=== PATIENT | male | born 1960 | race Asian ===

== ENCOUNTER 2021-06-07 08:14 | Inpatient (IN) | payer MEDICAID ==
[~2021-06-07] VITALS: Ht 167.6 cm; Wt 66.2 kg
[2021-06-07 09:16] LABS: BASOPHILS % (AUTO) 0.8 % (0.0-2.0); HEMOGLOBIN 12.7 g/dL (13.5-17.5); LYMPHOCYTES # (AUTO) 1.2 K/uL (1.0-4.8); LYMPHOCYTES % (AUTO) 14.5 % (22.0-44.0); MEAN CORPUSCULAR HGB CONC 33.4 G/dL (31.0-37.0); MEAN CORPUSCULAR VOLUME 90 fL (80-100); MONOCYTES # (AUTO) 0.5 K/uL (0.1-1.0); MONOCYTES % (AUTO) 6.6 % (2.0-9.0); NEUTROPHILS # (AUTO) 6.1 K/uL (1.8-7.7); NEUTROPHILS % (AUTO) 74.1 % (40.0-70.0); PLATELET COUNT (AUTO) 450 K/uL (150-450); RED BLOOD CELL COUNT(AUTO) 4.23 MIL/uL (4.50-5.90); RED CELL DISTRIBUTION WIDTH 13.2 % (11.5-14.5)
[2021-06-07 09:26] LABS: ANION GAP 14 mmol/L (8-16); CALCIUM, TOTAL 8.4 mg/dL (8.8-10.5); CARBON DIOXIDE 22 mmol/L (22-29); CHLORIDE 98 mmol/L (98-107); CREATININE 1.21 mg/dL (0.60-1.30); GLOMERULAR FILTR. RATE CALC > 60 mL/min (>60); GLUCOSE,RANDOM 332 mg/dL (70-110); POTASSIUM 3.8 mmol/L (3.5-5.1); SODIUM SERUM 134 mmol/L (136-145); UREA NITROGEN, BLOOD 7 mg/dL (7-18)
[2021-06-07 09:31] LABS: ALANINE AMINOTRANSFERASE 33 U/L (12-78); ALBUMIN 3.5 g/dL (3.4-5.0); ALKALINE PHOSPHATASE 163 U/L (46-116); ASPARTATE AMINOTRANSFERASE 26 U/L (15-37); BILIRUBIN,TOTAL 0.3 mg/dL (0.1-1.0); TOTAL PROTEIN, SERUM 7.2 g/dL (6.4-8.2)
[2021-06-07] MEDS ORDERED: LORazepam 2 MG TABLET PO ONE (10:00)
[2021-06-07] MEDS ORDERED: OLANZapine 5 MG RAPDIS TABLET PO ONE (10:00)
[2021-06-07 10:36] LABS: COVID AG,FIA SOURCE NASAL SWAB
[2021-06-07 12:24] LABS: APPEARANCE,URINE CLEAR (CLEAR); BILIRUBIN,URINE NEGATIVE (NEGATIVE); GLUCOSE, URINE (UA) >=1000 mg/dL (NEGATIVE); KETONES,URINE NEGATIVE (NEGATIVE); LEUKOCYTE ESTERASE ,URINE NEGATIVE (NEGATIVE); NITRATE,URINE NEGATIVE (NEGATIVE); OCCULT BLOOD,URINE NEGATIVE (NEGATIVE); PROTEIN,URINE NEGATIVE (NEGATIVE); SPECIFIC GRAVITIY, URINE 1.021 (1.003-1.030); UROBILINOGEN,URINE <=1.0 mg/dL (<=1.0)
[2021-06-07 12:41] LABS: AMPHET/METH SCREEN,URINE POSITIVE (NEGATIVE); BARBITURATE SCREEN, URINE NEGATIVE (NEGATIVE); BENZODIAZEPINES SCREEN,URINE NEGATIVE (NEGATIVE); CANNABINOID SCREEN,URINE POSITIVE (NEGATIVE); COCAINE SCREEN,URINE NEGATIVE (NEGATIVE); METHADONE SCREEN, URINE NEGATIVE (NEGATIVE); OPIATE SCREEN,URINE NEGATIVE (NEGATIVE)
[2021-06-07 12:42] LABS: PHENCYCLIDINE SCREEN,URINE NEGATIVE (NEGATIVE)
[2021-06-07 12:52] LABS: BACTERIA,URINE None Seen /HPF (None Seen); RBC,URINE None Seen /HPF (0-2); WBC,URINE None Seen /HPF (0-5)
[2021-06-08 00:48] VITALS: BP 113/67
[2021-06-08 08:15] VITALS: BP 119/72
[2021-06-08] MEDS ORDERED: GLIP-197 PO (10:53)
[2021-06-08] MEDS ORDERED: RISP1TAB89 PO (10:53)
[2021-06-08] MEDS ORDERED: METF-1211 PO (10:53)
[2021-06-08] MEDS ORDERED: EMPA10TA PO (10:53)
[2021-06-08] MEDS: RisperiDONE 1 MG TABLET PO SCH ×3 (12:39→16:26)
[2021-06-08] MEDS ORDERED: MAG HYDROX/AL HYDROX/SIMETH ES 30 ML SUSPENSION UDCUP PO PRN (12:45)
[2021-06-08] MEDS ORDERED: MAGNESIUM HYDROXIDE SUSPENSION 30 ML UDCUP PO PRN (12:45)
[2021-06-08] MEDS ORDERED: PETROLATUM,WHITE 28 GM JELLY TP PRN (12:45)
[2021-06-08] MEDS ORDERED: LOPERAMIDE HCL 2 MG CAPSULE PO PRN (12:45)
[2021-06-08] MEDS ORDERED: ACETAMINOPHEN 325 MG TABLET PO PRN (12:45)
[2021-06-08] MEDS ORDERED: NICOTINE 14 MG/24 HOUR PATCH TD PRN (12:45)
[2021-06-08] MEDS ORDERED: GuaiFENesin/D-METHORPHAN [SUGAR-FREE] 200-20MG/10 ML SYRUP UDCUP PO PRN (12:45)
[2021-06-08] MEDS ORDERED: CloNIDine HCL 0.1 MG TABLET PO PRN (12:45)
[2021-06-08] MEDS ORDERED: ONDANSETRON HCL 4 MG TABLET PO PRN (12:45)
[2021-06-08] MEDS ORDERED: DOCUSATE SODIUM 100 MG CAPSULE PO PRN (12:45)
[2021-06-08] MEDS ORDERED: ALBUTEROL SULFATE HFA 90 MCG/PUFF 8 GM INHALER IH PRN (12:45)
[2021-06-08 16:18] VITALS: BP 125/75
[2021-06-08] MEDS: MetFORMIN HCL 500 MG TABLET PO SCH (16:23)
[2021-06-08] MEDS: GlipiZIDE 10 MG TABLET PO SCH (16:30)
[2021-06-08] MEDS ORDERED: GLIP10TA10 PO (17:59)
[2021-06-09 03:59] VITALS: BP 123/78
[2021-06-09 06:21] LABS: GLUCOMETER DEV NAME(LOC) BV3N.; GLUCOSE,POINT OF CARE 107 MG/DL (70-110)
[2021-06-09] MEDS: GlipiZIDE 10 MG TABLET PO SCH ×2 (06:23→16:01)
[2021-06-09] MEDS: MetFORMIN HCL 500 MG TABLET PO SCH ×2 (06:46→16:01)
[2021-06-09 08:18] VITALS: BP 146/81
[2021-06-09] MEDS: RisperiDONE 1 MG TABLET PO SCH (08:53)
[2021-06-09] MEDS: ARIPiprazole 15 MG TABLET PO SCH (09:49)
[2021-06-09 16:18] VITALS: BP 126/78
[2021-06-10 04:14] VITALS: BP 146/85
[2021-06-10] MEDS: MetFORMIN HCL 500 MG TABLET PO SCH ×2 (06:42→17:34)
[2021-06-10] MEDS: GlipiZIDE 10 MG TABLET PO SCH ×2 (06:42→17:34)
[2021-06-10 08:26] VITALS: BP 137/81
[2021-06-10] MEDS: ARIPiprazole 15 MG TABLET PO SCH (08:57)
[2021-06-10 16:21] VITALS: BP 128/70
[2021-06-11 05:18] VITALS: BP 124/76
[2021-06-11] MEDS: GlipiZIDE 10 MG TABLET PO SCH ×2 (06:37→16:44)
[2021-06-11] MEDS: MetFORMIN HCL 500 MG TABLET PO SCH ×2 (06:37→16:44)
[2021-06-11 08:26] VITALS: BP 125/85
[2021-06-11] MEDS: ARIPiprazole 15 MG TABLET PO SCH (08:48)
[2021-06-11 16:16] VITALS: BP 112/62
[2021-06-11] MEDS: LORazepam 2 MG TABLET PO PRN (16:44)
[2021-06-11] MEDS: HALOPERIDOL 5 MG TABLET PO PRN (16:44)
[2021-06-11] MEDS: ZOLPIDEM TARTRATE 10 MG TABLET PO PRN (20:10)
[2021-06-12 05:34] VITALS: BP 124/81
[2021-06-12] MEDS: MetFORMIN HCL 500 MG TABLET PO SCH ×2 (06:30→17:11)
[2021-06-12] MEDS: GlipiZIDE 10 MG TABLET PO SCH ×2 (06:30→17:11)
[2021-06-12 06:31] LABS: GLUCOMETER DEV NAME(LOC) BV3N.; GLUCOSE,POINT OF CARE 112 MG/DL (70-110)
[2021-06-12 08:19] VITALS: BP 101/75
[2021-06-12] MEDS: ARIPiprazole 15 MG TABLET PO SCH (08:23)
[2021-06-12 16:13] VITALS: BP 104/62
[2021-06-12] MEDS: ZOLPIDEM TARTRATE 10 MG TABLET PO PRN (20:41)
[2021-06-13 04:31] VITALS: BP 102/63
[2021-06-13] MEDS: GlipiZIDE 10 MG TABLET PO SCH ×2 (06:41→17:07)
[2021-06-13] MEDS: MetFORMIN HCL 500 MG TABLET PO SCH ×2 (06:41→17:07)
[2021-06-13 06:56] LABS: GLUCOMETER DEV NAME(LOC) BV3N.; GLUCOSE,POINT OF CARE 95 MG/DL (70-110)
[2021-06-13 08:15] VITALS: BP 110/67
[2021-06-13] MEDS: ARIPiprazole 15 MG TABLET PO SCH (08:59)
[2021-06-13] MEDS: HALOPERIDOL 5 MG TABLET PO PRN ×2 (08:59→13:10)
[2021-06-13] MEDS: LORazepam 2 MG TABLET PO PRN ×2 (09:00→13:10)
[2021-06-13 16:14] VITALS: BP 108/66
[2021-06-14 04:57] VITALS: BP 103/76
[2021-06-14] MEDS: GlipiZIDE 10 MG TABLET PO SCH ×2 (06:34→16:42)
[2021-06-14] MEDS: MetFORMIN HCL 500 MG TABLET PO SCH ×2 (06:34→16:42)
[2021-06-14 06:41] LABS: GLUCOMETER DEV NAME(LOC) BV3N.; GLUCOSE,POINT OF CARE 132 MG/DL (70-110)
[2021-06-14] MEDS: ARIPiprazole 15 MG TABLET PO SCH (08:20)
[2021-06-14 08:40] VITALS: BP 112/63
[2021-06-14 16:12] VITALS: BP 109/64
[2021-06-14] MEDS: HALOPERIDOL 5 MG TABLET PO PRN (16:42)
[2021-06-14] MEDS: LORazepam 2 MG TABLET PO PRN (16:42)
[2021-06-15 03:06] VITALS: BP 108/62
[2021-06-15] MEDS: GlipiZIDE 10 MG TABLET PO SCH ×2 (06:26→16:57)
[2021-06-15] MEDS: MetFORMIN HCL 500 MG TABLET PO SCH ×2 (06:26→16:57)
[2021-06-15 06:46] LABS: GLUCOMETER DEV NAME(LOC) BV3N.; GLUCOSE,POINT OF CARE 111 MG/DL (70-110)
[2021-06-15 08:10] VITALS: BP 105/69
[2021-06-15] MEDS: ARIPiprazole 15 MG TABLET PO SCH (09:05)
[2021-06-15 16:02] VITALS: BP 113/72
[2021-06-15] MEDS: LORazepam 2 MG TABLET PO PRN (16:56)
[2021-06-15] MEDS: HALOPERIDOL 5 MG TABLET PO PRN (16:57)
[2021-06-16 04:14] VITALS: BP 112/71
[2021-06-16 06:16] LABS: GLUCOMETER DEV NAME(LOC) BV3N.; GLUCOSE,POINT OF CARE 109 MG/DL (70-110)
[2021-06-16] MEDS: GlipiZIDE 10 MG TABLET PO SCH ×2 (06:41→16:27)
[2021-06-16] MEDS: MetFORMIN HCL 500 MG TABLET PO SCH ×2 (06:42→16:28)
[2021-06-16 08:01] LABS: CHOL/HDL RATIO 4.5 (4.2-7.3)
[2021-06-16 08:06] VITALS: BP 114/70
[2021-06-16] MEDS: ARIPiprazole 15 MG TABLET PO SCH (08:07)
[2021-06-16] MEDS: LORazepam 2 MG TABLET PO PRN (08:07)
[2021-06-16] MEDS: IBUPROFEN 400 MG TABLET PO PRN (11:16)
[2021-06-16 16:06] VITALS: BP 110/62
[2021-06-16] MEDS: ZOLPIDEM TARTRATE 10 MG TABLET PO PRN (20:37)
[2021-06-17 05:00] VITALS: BP 114/74
[2021-06-17] MEDS: GlipiZIDE 10 MG TABLET PO SCH ×2 (06:27→16:58)
[2021-06-17] MEDS: MetFORMIN HCL 500 MG TABLET PO SCH ×2 (06:28→16:51)
[2021-06-17 08:06] VITALS: BP 115/74
[2021-06-17] MEDS: ARIPiprazole 15 MG TABLET PO SCH (09:18)
[2021-06-17 16:05] VITALS: BP 118/70
[2021-06-17] MEDS: HALOPERIDOL 5 MG TABLET PO PRN (16:51)
[2021-06-17] MEDS: LORazepam 2 MG TABLET PO PRN (16:51)
[2021-06-18 05:33] VITALS: BP 108/72
[2021-06-18] MEDS: GlipiZIDE 10 MG TABLET PO SCH ×2 (06:16→16:22)
[2021-06-18] MEDS: MetFORMIN HCL 500 MG TABLET PO SCH ×2 (06:16→16:22)
[2021-06-18 07:23] LABS: FREE T4 (FREE THYROXINE) 0.96 ng/dL (0.76-1.46); THYROID STIMULATING HORMONE 1.47 uIU/mL (0.36-3.74)
[2021-06-18] MEDS: ARIPiprazole 10 MG TABLET PO SCH (08:31)
[2021-06-18 08:32] VITALS: BP 122/87
[2021-06-18 16:17] VITALS: BP 107/63
[2021-06-18] MEDS: LORazepam 2 MG TABLET PO PRN (16:22)
[2021-06-18] MEDS: HALOPERIDOL 5 MG TABLET PO PRN (16:22)
[2021-06-19 05:07] VITALS: BP 110/71
[2021-06-19] MEDS: GlipiZIDE 10 MG TABLET PO SCH ×2 (06:12→16:33)
[2021-06-19] MEDS: MetFORMIN HCL 500 MG TABLET PO SCH ×2 (06:13→16:51)
[2021-06-19 08:16] VITALS: BP 109/74
[2021-06-19] MEDS: ARIPiprazole 10 MG TABLET PO SCH (08:16)
[2021-06-19 16:07] VITALS: BP 114/75
[2021-06-19] MEDS: LORazepam 2 MG TABLET PO PRN ×2 (16:51→20:51)
[2021-06-19] MEDS: IBUPROFEN 400 MG TABLET PO PRN (17:38)
[2021-06-19] MEDS: ZOLPIDEM TARTRATE 10 MG TABLET PO PRN (20:45)
[2021-06-20 05:15] VITALS: BP 114/70
[2021-06-20] MEDS: GlipiZIDE 10 MG TABLET PO SCH ×2 (06:33→16:32)
[2021-06-20] MEDS: MetFORMIN HCL 500 MG TABLET PO SCH ×2 (06:33→16:32)
[2021-06-20 08:16] VITALS: BP 101/67
[2021-06-20] MEDS: ARIPiprazole 10 MG TABLET PO SCH (08:34)
[2021-06-20 16:06] VITALS: BP 101/62
[2021-06-21 03:49] VITALS: BP 105/66
[2021-06-21] MEDS: MetFORMIN HCL 500 MG TABLET PO SCH ×2 (06:13→16:29)
[2021-06-21] MEDS: GlipiZIDE 10 MG TABLET PO SCH ×2 (06:13→16:29)
[2021-06-21 08:09] VITALS: BP 124/81
[2021-06-21] MEDS: ARIPiprazole 10 MG TABLET PO SCH (08:25)
[2021-06-21 16:11] VITALS: BP 100/62
[2021-06-22 03:28] VITALS: BP 110/66
[2021-06-22] MEDS: GlipiZIDE 10 MG TABLET PO SCH ×2 (06:12→16:32)
[2021-06-22] MEDS: MetFORMIN HCL 500 MG TABLET PO SCH ×2 (06:12→16:52)
[2021-06-22 08:06] VITALS: BP 111/62
[2021-06-22] MEDS: ARIPiprazole 10 MG TABLET PO SCH (08:31)
[2021-06-22 16:05] VITALS: BP 114/64
[2021-06-22] MEDS: LORazepam 2 MG TABLET PO PRN (20:38)
[2021-06-22] MEDS: ZOLPIDEM TARTRATE 10 MG TABLET PO PRN (20:38)
[2021-06-22] MEDS: HALOPERIDOL 5 MG TABLET PO PRN (20:38)
[2021-06-23] MEDS: MetFORMIN HCL 500 MG TABLET PO SCH ×2 (06:22→16:59)
[2021-06-23] MEDS: GlipiZIDE 10 MG TABLET PO SCH ×2 (06:23→16:31)
[2021-06-23] MEDS: ARIPiprazole 10 MG TABLET PO SCH (08:29)
[2021-06-23 08:38] VITALS: BP 110/61
[2021-06-23 16:24] VITALS: BP 107/67
[2021-06-23] MEDS: HALOPERIDOL 5 MG TABLET PO PRN (16:59)
[2021-06-23] MEDS: LORazepam 2 MG TABLET PO PRN (16:59)
[2021-06-24 04:34] VITALS: BP 99/64
[2021-06-24] MEDS: GlipiZIDE 10 MG TABLET PO SCH ×2 (06:23→16:29)
[2021-06-24] MEDS: MetFORMIN HCL 500 MG TABLET PO SCH ×2 (06:23→16:29)
[2021-06-24 08:16] VITALS: BP 112/74
[2021-06-24] MEDS: ARIPiprazole 10 MG TABLET PO SCH (08:50)
[2021-06-24] MEDS: METHYL SALICYLATE/MENTHOL 85 GM CREAM TP PRN ×3 (13:16→22:30)
[2021-06-24 16:27] VITALS: BP 130/77
[2021-06-25 05:02] VITALS: BP 100/62
[2021-06-25] MEDS: GlipiZIDE 10 MG TABLET PO SCH ×2 (06:37→16:04)
[2021-06-25] MEDS: MetFORMIN HCL 500 MG TABLET PO SCH ×2 (06:54→16:04)
[2021-06-25 08:15] VITALS: BP 130/82
[2021-06-25] MEDS: METHYL SALICYLATE/MENTHOL 85 GM CREAM TP PRN ×2 (08:27→16:05)
[2021-06-25] MEDS: ARIPiprazole 10 MG TABLET PO SCH (09:01)
[2021-06-25 16:19] VITALS: BP 134/85
[2021-06-26 01:33] VITALS: BP 112/77
[2021-06-26] MEDS: MetFORMIN HCL 500 MG TABLET PO SCH ×2 (06:34→16:10)
[2021-06-26] MEDS: GlipiZIDE 10 MG TABLET PO SCH ×2 (06:34→16:10)
[2021-06-26] MEDS: ARIPiprazole 10 MG TABLET PO SCH (08:39)
[2021-06-26 08:42] VITALS: BP 120/69
[2021-06-26] MEDS: METHYL SALICYLATE/MENTHOL 85 GM CREAM TP PRN (08:45)
[2021-06-26 16:14] VITALS: BP 115/62
[2021-06-27 04:02] VITALS: BP 138/88
[2021-06-27] MEDS: MetFORMIN HCL 500 MG TABLET PO SCH ×2 (06:34→16:28)
[2021-06-27] MEDS: GlipiZIDE 10 MG TABLET PO SCH ×2 (06:34→16:09)
[2021-06-27 08:20] VITALS: BP 130/82
[2021-06-27] MEDS: ARIPiprazole 10 MG TABLET PO SCH (09:10)
[2021-06-27] MEDS: METHYL SALICYLATE/MENTHOL 85 GM CREAM TP PRN (09:10)
[2021-06-27] MEDS: HALOPERIDOL 5 MG TABLET PO PRN (15:42)
[2021-06-27] MEDS: IBUPROFEN 400 MG TABLET PO PRN (15:43)
[2021-06-27] MEDS: LORazepam 2 MG TABLET PO PRN (16:02)
[2021-06-27 16:18] VITALS: BP 127/81
[2021-06-28 04:47] VITALS: BP 122/80
[2021-06-28] MEDS: MetFORMIN HCL 500 MG TABLET PO SCH ×2 (06:29→17:04)
[2021-06-28] MEDS: GlipiZIDE 10 MG TABLET PO SCH ×2 (06:29→16:53)
[2021-06-28] MEDS: ARIPiprazole 10 MG TABLET PO SCH (08:33)
[2021-06-28 08:45] VITALS: BP 112/62
[2021-06-28] MEDS: METHYL SALICYLATE/MENTHOL 85 GM CREAM TP PRN (12:26)
[2021-06-28 16:05] VITALS: BP 108/81
[2021-06-28] MEDS: IBUPROFEN 400 MG TABLET PO PRN (16:53)
[2021-06-28] MEDS: LORazepam 2 MG TABLET PO PRN (16:53)
[2021-06-28] MEDS: HALOPERIDOL 5 MG TABLET PO PRN (16:53)
[2021-06-29 01:37] VITALS: BP 123/78
[2021-06-29] MEDS: MetFORMIN HCL 500 MG TABLET PO SCH ×2 (06:21→16:49)
[2021-06-29] MEDS: GlipiZIDE 10 MG TABLET PO SCH ×2 (06:21→16:32)
[2021-06-29 08:17] VITALS: BP 136/78
[2021-06-29] MEDS: ARIPiprazole 10 MG TABLET PO SCH (08:23)
[2021-06-29 16:16] VITALS: BP 106/67
[2021-06-29] MEDS: IBUPROFEN 400 MG TABLET PO PRN (16:49)
[2021-06-29] MEDS: HALOPERIDOL 5 MG TABLET PO PRN (16:49)
[2021-06-29] MEDS: LORazepam 2 MG TABLET PO PRN (16:49)
[2021-06-30 04:30] VITALS: BP 130/80
[2021-06-30 06:21] LABS: GLUCOMETER DEV NAME(LOC) BV3N.; GLUCOSE,POINT OF CARE 132 MG/DL (70-110)
[2021-06-30] MEDS: GlipiZIDE 10 MG TABLET PO SCH ×2 (06:22→16:10)
[2021-06-30] MEDS: MetFORMIN HCL 500 MG TABLET PO SCH ×2 (06:22→16:10)
[2021-06-30 08:28] VITALS: BP 134/85
[2021-06-30] MEDS: ARIPiprazole 10 MG TABLET PO SCH (08:40)
[2021-06-30] MEDS: LORazepam 2 MG TABLET PO PRN ×2 (08:40→20:10)
[2021-06-30 13:06] LABS: GLUCOMETER DEV NAME(LOC) POC.BV
[2021-06-30] MEDS: METHYL SALICYLATE/MENTHOL 85 GM CREAM TP PRN (16:21)
[2021-06-30 16:24] VITALS: BP 106/67
[2021-07-01 06:25] VITALS: BP 118/70
[2021-07-01] MEDS: MetFORMIN HCL 500 MG TABLET PO SCH ×2 (07:10→17:32)
[2021-07-01] MEDS: GlipiZIDE 10 MG TABLET PO SCH ×2 (07:11→16:40)
[2021-07-01 08:34] VITALS: BP 128/80
[2021-07-01] MEDS: ARIPiprazole 10 MG TABLET PO SCH (08:42)
[2021-07-01 16:30] VITALS: BP 103/65
[2021-07-01] MEDS: LORazepam 2 MG TABLET PO PRN (17:32)
[2021-07-01] MEDS: HALOPERIDOL 5 MG TABLET PO PRN (17:32)
[2021-07-01] MEDS: IBUPROFEN 400 MG TABLET PO PRN (17:33)
[2021-07-02 04:31] VITALS: BP 100/68
[2021-07-02] MEDS: GlipiZIDE 10 MG TABLET PO SCH ×2 (06:39→16:09)
[2021-07-02] MEDS: MetFORMIN HCL 500 MG TABLET PO SCH ×2 (06:39→17:03)
[2021-07-02] MEDS: ARIPiprazole 10 MG TABLET PO SCH (08:51)
[2021-07-02] MEDS: LORazepam 2 MG TABLET PO PRN ×2 (08:52→16:09)
[2021-07-02 08:57] VITALS: BP 118/70
[2021-07-02] MEDS: METHYL SALICYLATE/MENTHOL 85 GM CREAM TP PRN (16:09)
[2021-07-02] MEDS: HALOPERIDOL 5 MG TABLET PO PRN (16:09)
[2021-07-02] MEDS: IBUPROFEN 400 MG TABLET PO PRN (16:09)
[2021-07-02 16:20] VITALS: BP 104/64
[2021-07-03 04:14] VITALS: BP 107/71
[2021-07-03] MEDS: GlipiZIDE 10 MG TABLET PO SCH ×2 (06:35→16:18)
[2021-07-03] MEDS: MetFORMIN HCL 500 MG TABLET PO SCH ×2 (06:35→17:00)
[2021-07-03 08:22] VITALS: BP 120/66
[2021-07-03] MEDS: ARIPiprazole 10 MG TABLET PO SCH (08:22)
[2021-07-03 16:16] VITALS: BP 103/61
[2021-07-03] MEDS: HALOPERIDOL 5 MG TABLET PO PRN (16:18)
[2021-07-03] MEDS: LORazepam 2 MG TABLET PO PRN (16:18)
[2021-07-03] MEDS: METHYL SALICYLATE/MENTHOL 85 GM CREAM TP PRN (16:19)
[2021-07-03] MEDS: IBUPROFEN 400 MG TABLET PO PRN (16:19)
[2021-07-04 04:22] VITALS: BP 106/62
[2021-07-04] MEDS: MetFORMIN HCL 500 MG TABLET PO SCH ×2 (06:38→16:58)
[2021-07-04] MEDS: GlipiZIDE 10 MG TABLET PO SCH ×2 (06:38→16:58)
[2021-07-04] MEDS: ARIPiprazole 10 MG TABLET PO SCH (08:41)
[2021-07-04] MEDS: LORazepam 2 MG TABLET PO PRN ×2 (08:41→16:35)
[2021-07-04 08:48] VITALS: BP 120/74
[2021-07-04 16:21] VITALS: BP 100/60
[2021-07-04] MEDS: IBUPROFEN 400 MG TABLET PO PRN (16:35)
[2021-07-05 04:14] VITALS: BP 102/62
[2021-07-05] MEDS: MetFORMIN HCL 500 MG TABLET PO SCH ×2 (06:19→16:47)
[2021-07-05] MEDS: GlipiZIDE 10 MG TABLET PO SCH ×2 (06:25→16:47)
[2021-07-05 08:41] VITALS: BP 100/65
[2021-07-05] MEDS: ARIPiprazole 10 MG TABLET PO SCH (09:12)
[2021-07-05] MEDS: LORazepam 2 MG TABLET PO PRN ×2 (09:13→16:47)
[2021-07-05 16:22] VITALS: BP 133/86
[2021-07-06] MEDS: GlipiZIDE 10 MG TABLET PO SCH ×2 (06:29→17:09)
[2021-07-06] MEDS: MetFORMIN HCL 500 MG TABLET PO SCH ×2 (06:29→17:09)
[2021-07-06] MEDS: ARIPiprazole 10 MG TABLET PO SCH (08:24)
[2021-07-06 08:38] VITALS: BP 110/70
[2021-07-06 16:26] VITALS: BP 105/73
[2021-07-06] MEDS: LORazepam 2 MG TABLET PO PRN (19:58)
[2021-07-07 04:32] VITALS: BP 93/61
[2021-07-07] MEDS: MetFORMIN HCL 500 MG TABLET PO SCH ×2 (06:26→17:07)
[2021-07-07] MEDS: GlipiZIDE 10 MG TABLET PO SCH ×2 (06:26→16:11)
[2021-07-07 08:40] VITALS: BP 121/76
[2021-07-07] MEDS: ARIPiprazole 10 MG TABLET PO SCH (08:46)
[2021-07-07] MEDS: LORazepam 2 MG TABLET PO PRN ×2 (08:46→17:07)
[2021-07-07 14:36] LABS: GLUCOMETER DEV NAME(LOC) POC.BV
[2021-07-07 16:24] VITALS: BP 125/82
[2021-07-07] MEDS: HALOPERIDOL 5 MG TABLET PO PRN (17:07)
[2021-07-08 05:02] VITALS: BP 84/52
[2021-07-08] MEDS: MetFORMIN HCL 500 MG TABLET PO SCH ×2 (06:27→17:17)
[2021-07-08] MEDS: GlipiZIDE 10 MG TABLET PO SCH ×2 (06:27→16:32)
[2021-07-08] MEDS: METHYL SALICYLATE/MENTHOL 85 GM CREAM TP PRN ×2 (07:19→17:25)
[2021-07-08] MEDS: LORazepam 2 MG TABLET PO PRN ×2 (08:26→17:17)
[2021-07-08] MEDS: ARIPiprazole 10 MG TABLET PO SCH (08:26)
[2021-07-08 08:29] VITALS: BP 110/78
[2021-07-08 11:33] LABS: GLUCOMETER DEV NAME(LOC) POC.BV
[2021-07-08 16:27] VITALS: BP 112/72
[2021-07-08] MEDS: HALOPERIDOL 5 MG TABLET PO PRN (17:17)
[2021-07-08] MEDS: IBUPROFEN 400 MG TABLET PO PRN (17:25)
[2021-07-09 04:17] VITALS: BP 93/56
[2021-07-09] MEDS: GlipiZIDE 10 MG TABLET PO SCH ×2 (06:38→16:37)
[2021-07-09] MEDS: MetFORMIN HCL 500 MG TABLET PO SCH ×2 (06:39→17:06)
[2021-07-09 08:32] VITALS: BP 111/65
[2021-07-09] MEDS: ARIPiprazole 10 MG TABLET PO SCH (08:40)
[2021-07-09] MEDS: LORazepam 2 MG TABLET PO PRN ×2 (08:40→17:06)
[2021-07-09 16:19] VITALS: BP 109/63
[2021-07-09] MEDS: HALOPERIDOL 5 MG TABLET PO PRN (17:06)
[2021-07-10 05:57] VITALS: BP 107/61
[2021-07-10] MEDS: MetFORMIN HCL 500 MG TABLET PO SCH ×2 (06:26→16:10)
[2021-07-10] MEDS: GlipiZIDE 10 MG TABLET PO SCH ×2 (06:26→16:11)
[2021-07-10] MEDS: LORazepam 2 MG TABLET PO PRN ×2 (08:14→17:39)
[2021-07-10] MEDS: ARIPiprazole 10 MG TABLET PO SCH (08:14)
[2021-07-10 08:25] VITALS: BP 122/71
[2021-07-10 16:25] VITALS: BP 104/60
[2021-07-11 05:08] VITALS: BP 106/63
[2021-07-11] MEDS: GlipiZIDE 10 MG TABLET PO SCH ×2 (06:18→17:02)
[2021-07-11] MEDS: MetFORMIN HCL 500 MG TABLET PO SCH ×2 (06:18→17:02)
[2021-07-11] MEDS: ARIPiprazole 10 MG TABLET PO SCH (08:42)
[2021-07-11 08:53] VITALS: BP 103/61
[2021-07-11] MEDS: LORazepam 2 MG TABLET PO PRN ×2 (08:59→17:02)
[2021-07-11 16:27] VITALS: BP 111/67
[2021-07-12] MEDS: LORazepam 2 MG TABLET PO PRN ×3 (02:04→16:38)
[2021-07-12 02:18] VITALS: BP 105/72
[2021-07-12] MEDS: MetFORMIN HCL 500 MG TABLET PO SCH ×2 (06:30→17:05)
[2021-07-12] MEDS: GlipiZIDE 10 MG TABLET PO SCH ×2 (07:01→16:33)
[2021-07-12 08:39] VITALS: BP 100/64
[2021-07-12] MEDS: ARIPiprazole 10 MG TABLET PO SCH (08:42)
[2021-07-12 16:06] VITALS: BP 102/61
[2021-07-13 04:57] VITALS: BP 107/70
[2021-07-13] MEDS: GlipiZIDE 10 MG TABLET PO SCH ×2 (06:18→16:27)
[2021-07-13] MEDS: MetFORMIN HCL 500 MG TABLET PO SCH ×2 (06:19→16:27)
[2021-07-13 08:43] VITALS: BP 112/62
[2021-07-13] MEDS: ARIPiprazole 10 MG TABLET PO SCH (09:33)
[2021-07-13] MEDS: LORazepam 2 MG TABLET PO PRN ×2 (09:53→23:57)
[2021-07-13 16:17] VITALS: BP 122/85
[2021-07-14 00:08] VITALS: BP 108/66
[2021-07-14] MEDS: MetFORMIN HCL 500 MG TABLET PO SCH ×2 (06:30→16:35)
[2021-07-14] MEDS: GlipiZIDE 10 MG TABLET PO SCH ×2 (06:30→16:35)
[2021-07-14] MEDS: LORazepam 2 MG TABLET PO PRN (08:17)
[2021-07-14] MEDS: ARIPiprazole 10 MG TABLET PO SCH (08:17)
[2021-07-14 08:19] VITALS: BP 112/69
[2021-07-14 16:22] VITALS: BP 102/62
[2021-07-15] MEDS: LORazepam 2 MG TABLET PO PRN ×3 (00:59→17:03)
[2021-07-15 04:40] VITALS: BP 115/67
[2021-07-15] MEDS: GlipiZIDE 10 MG TABLET PO SCH ×2 (06:41→16:31)
[2021-07-15] MEDS: MetFORMIN HCL 500 MG TABLET PO SCH ×2 (06:41→17:03)
[2021-07-15 08:36] VITALS: BP 112/68
[2021-07-15] MEDS: ARIPiprazole 10 MG TABLET PO SCH (08:40)
[2021-07-15 16:50] VITALS: BP 109/65
[2021-07-15] MEDS: HALOPERIDOL 5 MG TABLET PO PRN (17:03)
[2021-07-16] MEDS: LORazepam 2 MG TABLET PO PRN ×3 (01:07→16:26)
[2021-07-16 01:24] VITALS: BP 112/74
[2021-07-16] MEDS: GlipiZIDE 10 MG TABLET PO SCH ×2 (06:26→16:21)
[2021-07-16] MEDS: MetFORMIN HCL 500 MG TABLET PO SCH ×2 (06:27→16:54)
[2021-07-16 08:20] VITALS: BP 102/65
[2021-07-16 08:30] VITALS: BP 108/70
[2021-07-16 08:31] LABS: GLUCOMETER DEV NAME(LOC) POC.BV
[2021-07-16] MEDS: ARIPiprazole 10 MG TABLET PO SCH (08:34)
[2021-07-16 16:18] VITALS: BP 102/60
[2021-07-16] MEDS: HALOPERIDOL 5 MG TABLET PO PRN (16:27)
[2021-07-17] MEDS: METHYL SALICYLATE/MENTHOL 85 GM CREAM TP PRN (04:39)
[2021-07-17 04:43] VITALS: BP 99/61
[2021-07-17] MEDS: MetFORMIN HCL 500 MG TABLET PO SCH ×2 (06:29→17:04)
[2021-07-17] MEDS: GlipiZIDE 10 MG TABLET PO SCH ×2 (06:29→16:24)
[2021-07-17 08:29] VITALS: BP 110/62
[2021-07-17] MEDS: ARIPiprazole 10 MG TABLET PO SCH (08:49)
[2021-07-17] MEDS: HALOPERIDOL 5 MG TABLET PO PRN ×2 (08:50→17:05)
[2021-07-17 16:24] VITALS: BP 110/70
[2021-07-17] MEDS ORDERED: LORazepam 2 MG TABLET PO PRN (20:45)
[2021-07-17] MEDS: IBUPROFEN 400 MG TABLET PO PRN (20:47)
[2021-07-17] MEDS: LORazepam 1 MG TABLET PO PRN (20:47)
[2021-07-18 06:17] VITALS: BP 100/65
[2021-07-18] MEDS: GlipiZIDE 10 MG TABLET PO SCH ×2 (06:23→16:26)
[2021-07-18] MEDS: MetFORMIN HCL 500 MG TABLET PO SCH ×2 (06:23→16:25)
[2021-07-18] MEDS: LORazepam 1 MG TABLET PO PRN (08:07)
[2021-07-18] MEDS: ARIPiprazole 10 MG TABLET PO SCH (08:07)
[2021-07-18 08:31] VITALS: BP 118/69
[2021-07-18 16:17] VITALS: BP 108/61
[2021-07-19] MEDS: LORazepam 1 MG TABLET PO PRN (04:33)
[2021-07-19 05:35] VITALS: BP 115/60
[2021-07-19] MEDS: GlipiZIDE 10 MG TABLET PO SCH ×2 (06:25→16:48)
[2021-07-19] MEDS: MetFORMIN HCL 500 MG TABLET PO SCH ×2 (06:27→16:48)
[2021-07-19 08:23] VITALS: BP 107/60
[2021-07-19] MEDS: ARIPiprazole 10 MG TABLET PO SCH (09:26)
[2021-07-19 16:41] VITALS: BP 95/61
[2021-07-19] MEDS ORDERED: ZOLPIDEM TARTRATE 10 MG TABLET PO PRN (20:00)
[2021-07-20 04:55] VITALS: BP 122/76
[2021-07-20] MEDS: IBUPROFEN 400 MG TABLET PO PRN (05:07)
[2021-07-20] MEDS: GlipiZIDE 10 MG TABLET PO SCH ×2 (06:47→16:39)
[2021-07-20] MEDS: MetFORMIN HCL 500 MG TABLET PO SCH ×2 (06:47→16:58)
[2021-07-20 08:26] VITALS: BP 121/70
[2021-07-20] MEDS: LORazepam 1 MG TABLET PO PRN ×2 (08:30→16:59)
[2021-07-20] MEDS: ARIPiprazole 10 MG TABLET PO SCH (08:30)
[2021-07-20 16:34] VITALS: BP 128/77
[2021-07-20] MEDS: HALOPERIDOL 5 MG TABLET PO PRN (16:58)
[2021-07-20] MEDS: ERYTHROMYCIN 0.5% 3.5 GM TUBE OPHTHALMIC OINTMENT OU SCH (17:00)
[2021-07-21 05:59] VITALS: BP 97/61
[2021-07-21] MEDS: MetFORMIN HCL 500 MG TABLET PO SCH ×2 (06:33→17:02)
[2021-07-21] MEDS: GlipiZIDE 10 MG TABLET PO SCH ×2 (06:33→17:02)
[2021-07-21 08:19] VITALS: BP 122/70
[2021-07-21] MEDS: ERYTHROMYCIN 0.5% 3.5 GM TUBE OPHTHALMIC OINTMENT OU SCH ×3 (08:54→17:03)
[2021-07-21] MEDS: LORazepam 1 MG TABLET PO PRN (08:55)
[2021-07-21] MEDS: ARIPiprazole 10 MG TABLET PO SCH (08:55)
[2021-07-21 16:21] VITALS: BP 108/65
[2021-07-22 05:49] VITALS: BP 110/68
[2021-07-22] MEDS: MetFORMIN HCL 500 MG TABLET PO SCH ×2 (06:24→16:22)
[2021-07-22] MEDS: GlipiZIDE 10 MG TABLET PO SCH ×2 (06:25→16:22)
[2021-07-22] MEDS: ARIPiprazole 10 MG TABLET PO SCH (09:00)
[2021-07-22] MEDS: LORazepam 1 MG TABLET PO PRN ×2 (09:01→16:22)
[2021-07-22] MEDS: ERYTHROMYCIN 0.5% 3.5 GM TUBE OPHTHALMIC OINTMENT OU SCH ×3 (09:02→16:22)
[2021-07-22 09:24] VITALS: BP 112/74
[2021-07-22] MEDS: HALOPERIDOL 5 MG TABLET PO PRN (16:22)
[2021-07-22 16:51] VITALS: BP 123/77
[2021-07-23 05:20] VITALS: BP 110/69
[2021-07-23] MEDS: GlipiZIDE 10 MG TABLET PO SCH ×2 (06:35→16:08)
[2021-07-23] MEDS: MetFORMIN HCL 500 MG TABLET PO SCH ×2 (06:36→16:08)
[2021-07-23 07:44] LABS: HEMOGLOBIN A1C 9.9 % (3.8-5.6)
[2021-07-23 07:45] LABS: ANION GAP 9 mmol/L (8-16); CALCIUM, TOTAL 8.8 mg/dL (8.8-10.5); CARBON DIOXIDE 27 mmol/L (22-29); CHLORIDE 102 mmol/L (98-107); CREATININE 0.91 mg/dL (0.60-1.30); GLOMERULAR FILTR. RATE CALC > 60 mL/min (>60); GLUCOSE,RANDOM 168 mg/dL (70-110); POTASSIUM 4.5 mmol/L (3.5-5.1); SODIUM SERUM 138 mmol/L (136-145); UREA NITROGEN, BLOOD 19 mg/dL (7-18)
[2021-07-23 08:20] VITALS: BP 115/89
[2021-07-23] MEDS: ARIPiprazole 10 MG TABLET PO SCH (08:22)
[2021-07-23] MEDS: ERYTHROMYCIN 0.5% 3.5 GM TUBE OPHTHALMIC OINTMENT OU SCH ×3 (08:22→16:09)
[2021-07-23] MEDS: LORazepam 1 MG TABLET PO PRN (08:22)
[2021-07-23 16:30] VITALS: BP 115/65
[2021-07-24 05:22] VITALS: BP 111/73
[2021-07-24] MEDS: MetFORMIN HCL 500 MG TABLET PO SCH (06:17)
[2021-07-24] MEDS: GlipiZIDE 10 MG TABLET PO SCH (06:17)
[2021-07-24 08:26] VITALS: BP 95/60
[2021-07-24] MEDS: ERYTHROMYCIN 0.5% 3.5 GM TUBE OPHTHALMIC OINTMENT OU SCH (08:38)
[2021-07-24] MEDS: ARIPiprazole 10 MG TABLET PO SCH (08:38)
[2021-07-24] MEDS ORDERED: ARIP10TA38 PO ×2 (11:19→11:32)
[2021-07-24] MEDS ORDERED: ERYT3.5O8 OU (11:35)
[2021-07-24 12:31] LABS: GLUCOMETER DEV NAME(LOC) POC.BV
== END 2021-07-24 13:24 | disposition home or self-care (01) | DRG 750 ==
LOC: EMS 08:17 → B3A 06-08 00:58
PROVIDERS: ADMIT Psychiatry & Neurology Child & Adolescent Psychiatry; ATTEND Psychiatry & Neurology Child & Adolescent Psychiatry
DX: F20.0 Paranoid schizophrenia (principal); E87.1 Hypo-osmolality and hyponatremia; E11.9 Type 2 diabetes mellitus without complications; F12.10 Cannabis abuse, uncomplicated; E78.5 Hyperlipidemia, unspecified; F10.10 Alcohol abuse, uncomplicated; D64.9 Anemia, unspecified; F15.10 Other stimulant abuse, uncomplicated; Z20.822 Contact with and (suspected) exposure to COVID-19; F20.9 Schizophrenia, unspecified; F41.9 Anxiety disorder, unspecified; F17.210 Nicotine dependence, cigarettes, uncomplicated; F19.10 Other psychoactive substance abuse, uncomplicated; Z59.00 Homelessness unspecified
CPT/HCPCS: 80048; 80053; 80061; 81001; 81003; 82962; 83036; 84439; 84443; 85025; 87081; 99285; G0480